=== PATIENT | male | born 1935 | race Caucasian/White ===

== ENCOUNTER → 2017-01-22 | Outpatient (CLI) | payer MEDICARE | END | disposition home or self-care (01) | LOC: CVU 13:41 → EDSTATUS 14:00 | PROVIDERS: ATTEND Internal Medicine Cardiovascular Disease | DX: R06.02 Shortness of breath (principal); R00.0 Tachycardia, unspecified; I10 Essential (primary) hypertension; F41.9 Anxiety disorder, unspecified | CPT/HCPCS: 93306 ==